=== PATIENT | male | born 2000 | race Caucasian/White ===

== ENCOUNTER 2024-04-23 22:24 | Emergency (ER) | payer MEDICAID ==
[~2024-04-23] VITALS: Ht 162.6 cm; Wt 70.0 kg
[2024-04-23 23:05] VITALS: BP 135/90; PULSE 75; RESP 18; TEMP 97.8; O2SAT 99
[2024-04-24] MEDS: TRANEXAMIC ACID 1,000MG/10ML IV ONE (00:47)
== END 2024-04-24 01:13 | disposition home or self-care (01) ==
LOC: ER 04-24 00:25
DX: N47.2 Paraphimosis (principal)
CPT/HCPCS: 96374; 99283; Z7610 ×2